=== PATIENT | female | born 1985 ===

== ENCOUNTER 2017-03-08 08:55 | Emergency (ER) | payer OTHER, SELFPAY ==
[2017-03-08 09:15] VITALS: RESP 18
[2017-03-08 09:59] LABS: BASO % 0.1 % (0.0-2.0); HEMOGLOBIN 11.4 g/dL (11.0-16.0); LYMPH # 2.2 K/uL (1.0-4.3); LYMPH % 20.3 % (20.0-40.0); MEAN CORPUSCULAR HEMOGLOBIN 24.7 pg (27.0-31.0); MEAN CORPUSCULAR HGB CONC 32.8 g/dL (33.0-37.0); MONO # 0.8 K/uL (0.0-0.8); MONO % 7.7 % (0.0-10.0); NEUT # 7.8 K/uL (1.8-7.0); NEUT % 71.9 % (50.0-75.0); RBC 4.61 Mil/uL (3.80-5.20); RED CELL DISTRIBUTION WIDTH 16.7 % (11.5-14.5)
[2017-03-08 10:01] LABS: HCG,QUALITATIVE URINE NEGATIVE (NEGATIVE); MEAN CELL VOLUME 75.5 fL (81.0-99.0); WHITE BLOOD COUNT 10.9 K/uL (4.8-10.8)
[2017-03-08 10:05] LABS: INR 1.1; PROTHROMBIN TIME 12.7 SECONDS (9.7-12.2)
[2017-03-08 10:06] LABS: SQUAMOUS EPITHIAL < 1 /hpf (0-5); URINE BILIRUBIN NEGATIVE (NEGATIVE); URINE BLOOD NEGATIVE (NEGATIVE); URINE CLARITY Clear (Clear); URINE COLOR Yellow (YELLOW); URINE GLUCOSE (UA) NORMAL (Normal); URINE LEUKOCYTE ESTERASE NEG Leu/uL (Negative); URINE NITRATE NEGATIVE (NEGATIVE); URINE PROTEIN NEGATIVE (NEGATIVE); URINE UROBILINOGEN NORMAL mg/dL (0.2-1.0)
--- NOTE | 2017-03-08 10:10 | C.PDOC ---
History Of Present Illness 31 y/o female, with history of hypothyroidism, presents to the ER for chest pain , arm numbness which started while she was sleeping. Patient reports that "she also has belching" Patient denies any fever, hx of blood clots,surgery, and recent travel. no sob, no cardiac hx. Time Seen by Provider: 03/08/17 09:29 Chief Complaint (Nursing): Chest Pain History Per: Patient History/Exam Limitations: no limitations Onset/Duration Of Symptoms: Hrs Current Symptoms Are (Timing): Still Present Severity: Moderate Past Medical History Reviewed: Historical Data, Nursing Documentation, Vital Signs Vital Signs: Last Vital Signs Temp 98.5 F 03/08/17 09:14 Pulse 83 03/08/17 09:14 Resp 18 03/08/17 09:14 BP 118/75 03/08/17 09:14 Pulse Ox 100 03/08/17 10:16 - Medical History PMH: Hypothyroidism Surgical History: No Surg Hx - [facility] Procedures EXTRACTION OF POC, LOW CERVICAL, OPEN APPROACH (06/12/15) MONITORING OF POC, CARDIAC RATE, CANCER REGISTRY COORDINATOR APPROACH (06/12/15) Family History: States: No Known Family Hx - Social History Hx Alcohol Use: No Hx Substance Use: No - Immunization History Hx Tetanus Toxoid Vaccination: Yes Hx Influenza Vaccination: No Hx Pneumococcal Vaccination: No Review Of Systems Except As Marked, All Systems Reviewed And Found Negative. Constitutional: Negative for: Fever, Chills Cardiovascular: Positive for: Chest Pain Respiratory: Negative for: Cough, Shortness of Breath Neurological: Positive for: Numbness (arm numbness) Physical Exam - Physical Exam Appears: Non-toxic, No Acute Distress Skin: Normal Color, Warm Head: Atraumatic, Normacephalic Eye(s): bilateral: Normal Inspection, PERRL Nose: Normal Oral Mucosa: Moist Neck: Supple Chest: Symmetrical Cardiovascular: Rhythm Regular Respiratory: Normal Breath Sounds, No Accessory Muscle Use, No Rales, No Rhonchi , No Wheezing Gastrointestinal/Abdominal: Normal Exam, Soft, No Tenderness Extremity: Normal ROM Neurological/Psych: Oriented x3, Normal Speech, Normal Cognition, Normal Motor, Normal Sensation ED Course And Treatment - Laboratory Results Result Diagrams: 03/08/17 09:50 03/08/17 09:50 ECG: Interpreted By Me, Viewed By Me ECG Rhythm: Sinus Rhythm Rate From EC O2 Sat by Pulse Oximetry: 100 (RA) Pulse Ox Interpretation: Normal Medical Decision Making Medical Decision Making: cp r/o pna, pneumo, metabolic, anemia- pt well appearing on phone in nad. perc neg. ekg wnl. no cardiac risk factor. Plan: -- Labs -- Urinalysis --CXR -- EKG PERC negative 1030: pt reasseseD: in nad, on phone, speaking full sentences, perc neg, cxr, ekg wnl no e/o of anmeia, electrolytes wnl. advsie close outpt f/u and return precautions Disposition - Disposition Referrals: Beltran Haile MD [Staff Provider] - [facility] [Outside] [facility] [Outside] Disposition: HOME/ ROUTINE Disposition Time: 10:32 Condition: STABLE Additional Instructions: follow up with your doctor return to er with worsening symptoms or concerns. Forms: [employer] (Citizen Of [place]) - Clinical Impression Clinical Impression: Chest pain - Scribe Statement The provider has reviewed the documentation as recorded by the Careyibjuanpablo Shankar Provider Attestation: All medical record entries made by the Scribe were at my direction and personally dictated by me. I have reviewed the chart and agree that the record accurately reflects my personal performance of the history, physical exam, medical decision making, and the department course for this patient. I have also personally directed, reviewed, and agree with the discharge instructions and disposition.
--- NOTE | 2017-03-08 10:17 | RAD ---
HISTORY: SOB COMPARISON: None available. TECHNIQUE: Chest PA and lateral FINDINGS: LUNGS: No focal consolidation. Bilateral lower lobe nodular densities appear consistent with nipple shadows. Please note that chest x-ray has limited sensitivity for the detection of pulmonary masses. PLEURA: No significant pleural effusion identified. No definite pneumothorax . CARDIOVASCULAR: The cardiomediastinal silhouette appears within normal limits of size. OSSEOUS STRUCTURES: No acute osseous abnormality identified. VISUALIZED UPPER ABDOMEN: Unremarkable. OTHER FINDINGS: None. IMPRESSION: No focal consolidation, significant pleural effusion, or definite pneumothorax identified.
[2017-03-08 10:22] LABS: ALB/GLOB RATIO 1.3 (1.0-2.1); ALBUMIN 4.3 g/dL (3.5-5.0); ALT/SGPT 17 U/L (9-52); AST/SGOT 20 U/L (14-36); BLOOD UREA NITROGEN 11 mg/dL (7-17); CALCIUM 8.7 mg/dl (8.6-10.4); GFR AFRICAN-AMERICAN > 60; GFR NON-AFRICAN AMERICAN > 60
[2017-03-08 10:46] VITALS: BP 95/58; PULSE 75; TEMP 98; O2SAT 99
--- NOTE | 2017-03-09 23:14 | CARD ---
APPROVED REPORT EKG Measurement Heart [id number] <Conclusion> Normal sinus rhythm Normal ECG
== END 2017-03-08 10:46 | disposition home or self-care (01) ==
LOC: C.ER 08:55
DX: R07.9 Chest pain, unspecified (principal)

== ENCOUNTER 2017-11-18 14:16 | Emergency (ER) | payer OTHER ==
[2017-11-18 14:17] VITALS: BMI 29.8
[2017-11-18] MEDS ORDERED: Sodium Chloride 0.9% 1,000 ML IV ONE (15:19)
--- NOTE | 2017-11-18 15:20 | C.PDOC ---
History Of Present Illness 32 y/o female, A1, LMP: 10/06/17, presents to ED for evaluation suprapubic abdominal pain described as cramping gradually worsening over the past 3 days. Patient reports having positive home test yesterday. Notes she had Paragard IUD for 2 years. She reports associated nausea and vomiting. She notes having scant pink discharge when wiping. Denies painful urination, frequency, urination, diarrhea, constipation, fever, chills, or back pain. Time Seen by Provider: 11/18/17 15:13 Chief Complaint (Nursing): Abdominal Pain History Per: Patient History/Exam Limitations: no limitations Onset/Duration Of Symptoms: Days Current Symptoms Are (Timing): Still Present Location Of Pain/Discomfort: Suprapubic Radiation Of Pain To:: None Quality Of Discomfort: Cramping Associated Symptoms: Nausea, Vomiting. denies: Fever, Chills Exacerbating Factors: None Alleviating Factors: None Recent travel outside of the [place]: No Additional History Per: Patient Last Menstral Period: 10/06/17 : 4 Para: 2 Past Medical History Reviewed: Historical Data, Nursing Documentation, Vital Signs Vital Signs: Last Vital Signs Temp 99 F 11/18/17 14:37 Pulse 71 11/18/17 14:37 Resp 19 11/18/17 14:37 BP 115/66 11/18/17 14:37 Pulse Ox 100 11/18/17 14:37 - Medical History PMH: Hypothyroidism - [facility] Procedures EXTRACTION OF POC, LOW CERVICAL, OPEN APPROACH (06/12/15) MONITORING OF POC, CARDIAC RATE, REMOTE ADVISOR APPROACH (06/12/15) Family History: States: Unknown Family Hx - Social History Hx Alcohol Use: No Hx Substance Use: No - Immunization History Hx Tetanus Toxoid Vaccination: No Hx Influenza Vaccination: No Hx Pneumococcal Vaccination: No Review Of Systems Except As Marked, All Systems Reviewed And Found Negative. Constitutional: Negative for: Fever, Chills Gastrointestinal: Positive for: Nausea, Vomiting, Abdominal Pain. Negative for: Diarrhea, Constipation, Hematemesis Genitourinary: Negative for: Dysuria, Frequency, Hematuria Musculoskeletal: Negative for: Back Pain Physical Exam - Physical Exam Appears: Non-toxic, No Acute Distress Skin: Normal Color, Warm, Dry Head: Atraumatic, Normacephalic Eye(s): bilateral: Normal Inspection Oral Mucosa: Moist Neck: Normal ROM, Supple Chest: Symmetrical, No Tenderness Cardiovascular: Rhythm Regular, No Murmur Respiratory: Normal Breath Sounds, No Rales, No Rhonchi, No Wheezing Gastrointestinal/Abdominal: Soft, Tenderness (suprapubic), No Guarding, No Rebound Back: No CVA Tenderness Extremity: Normal ROM Neurological/Psych: Oriented x3, Normal Speech ED Course And Treatment - Laboratory Results Result Diagrams: 11/18/17 15:27 11/18/17 15:27 O2 Sat by Pulse Oximetry: 100 (RA) Pulse Ox Interpretation: Normal - CT Scan/US Preg 1st trimester US Other Rad Studies (CT/US): Read By Radiologist, Radiology Report Reviewed CT/US Interpretation: Accession No. : [id number]. Patient Name / ID : AKIRA BORREGO / [id number]. Exam Date : 11/18/2017 16:57:19 ( Approved ). Study Comment : Sex / Age : F / 32Y. Creator : Rachle Iyer MD. Dictator : Rachel Iyer MD. Wrapper Layer : Turner In : Rachel Iyer MD. Approver2 : Report Date : 11/18/2017 17:38:48. My Comment : . Date of service: 11/18/17. 1st trimester ultrasound. Indication: preg, pain, spotting has IUD r.o ectopic. Comparison: None. Technique: Real-time transabdominal pelvic ultrasound was performed. In addition a transvaginal pelvic ultrasound was necessary to better depict pelvic anatomy. Findings: Uterus measures approximately 10.6 x 6.3 x 6.6 cm. Anteverted. Endometrial thickness measures approximately 2.8 cm. Small cystic focus within the endometrium appears compatible with gestational sac, too small for gestational age calculation. No evidence of yolk sac or pole at this time. An IUD is identified within the cervix/lower uterine segment. Cervix length measures approximately 3.1 cm. The right ovary measures 3.6 x 2.5 x 3.4 cm. The left ovary measures 2.8 x 1.6 x 2.6. Blood flow was demonstrated to both ovaries. Impression: Thickened endometrium measuring approximately 2.8 cm. Small cystic focus within the endometrium appears compatible with gestational sac, too small for gestational age calculation. No evidence of yolk sac or pole at this time. Recommend clinical correlation including quantitative beta HCG and follow-up ultrasound as indicated. An IUD is identified within the cervix/lower uterine segment. Recommend HANDYMAN con sultation. Medical Decision Making Medical Decision Making: Impression: 32 year old female, A1, with gradually worsening lower abdominal pain. Plan: * Blood work * Urinalysis * OB transvaginal US * IV fluids Progress: POc was + . Ordered labs and US. Labs reviewed normal H/H and BHCG is ~1400. US shows gestational sac and thickened endometrium, no adnexal abnormality. 1752 Discussed case with OB hospitalist Dr Esteves and advised the patient r eturn in 48 hours BHCG should be about 2100 and repeat US. Patient remained afebrile with stable vital signs and in no distress. Discussed results with patient, and copy of lab and US report was provided. Advise patient to return for repeat blood and US in 48 hours and expressed understanding. Christiane ent feels comfortable going home and will be discharged. Patient given follow up instructions. Instructed to return to ER if symptoms worsen or new symptoms arise. Disposition Counseled Patient/Family Regarding: Diagnosis, Need For Followup - Disposition [facility] Disposition: HOME/ ROUTINE Disposition Time: 17:56 Condition: STABLE Additional Instructions: Return in 48 hours for repeat BHCG and US. Take Tylenol for any pain Regreso en 48 horas para repetir HCG y US. Yessi Tylenol para cualquier dolor. Instructions: Threatened Miscarriage (DC) Forms: [employer] (Bermudian) Print Language: SAMI - POA Present On Arrival: None - Clinical Impression Clinical Impression: Threatened - PA / FILE CLERK DATA ENTRY / Resident Statement MD/DO has reviewed & agrees with the documentation as recorded. - Scribe Statement The provider has reviewed the documentation as recorded by the Scribe KP All medical record entries made by the Scribe were at my direction and pe rsonally dictated by me. I have reviewed the chart and agree that the record accurately reflects my personal performance of the history, physical exam, medical decision making, and the department course for this patient. I have also personally directed, reviewed, and agree with the discharge instructions and disposition.
[2017-11-18 15:36] LABS: BASO % 0.3 % (0.0-2.0); HEMOGLOBIN 10.2 g/dL (11.0-16.0); LYMPH # 1.9 K/uL (1.0-4.3); LYMPH % 26.9 % (20.0-40.0); MEAN CELL VOLUME 71.3 fL (81.0-99.0); MEAN CORPUSCULAR HGB CONC 32.3 g/dL (33.0-37.0); MEAN PLATELET VOLUME 8.8 fL (7.2-11.7); MONO # 0.6 K/uL (0.0-0.8); MONO % 8.6 % (0.0-10.0); NEUT # 4.5 K/uL (1.8-7.0); NEUT % 64.2 % (50.0-75.0); RBC 4.43 Mil/uL (3.80-5.20); RED CELL DISTRIBUTION WIDTH 17.6 % (11.5-14.5)
[2017-11-18 15:39] LABS: HCG,QUALITATIVE URINE POSITIVE (NEGATIVE)
[2017-11-18 15:44] LABS: SQUAMOUS EPITHIAL < 1 /hpf (0-5); URINE BACTERIA RARE (<OCC); URINE BILIRUBIN NEGATIVE (NEGATIVE); URINE BLOOD NEGATIVE (NEGATIVE); URINE CLARITY Clear (Clear); URINE COLOR Straw (YELLOW); URINE GLUCOSE (UA) NORMAL (Normal); URINE LEUKOCYTE ESTERASE NEG Leu/uL (Negative); URINE PROTEIN NEGATIVE (NEGATIVE); URINE UROBILINOGEN NORMAL mg/dL (0.2-1.0)
[2017-11-18 15:52] LABS: ALB/GLOB RATIO 1.6 (1.0-2.1); ALBUMIN 4.4 g/dL (3.5-5.0); ALT/SGPT 30 U/L (9-52); AST/SGOT 18 U/L (14-36); BLOOD UREA NITROGEN 10 mg/dL (7-17); CALCIUM 8.9 mg/dl (8.6-10.4); GFR NON-AFRICAN AMERICAN > 60
--- NOTE | 2017-11-18 17:40 | US ---
Date of service: 11/18/17 1st trimester ultrasound Indication: preg, pain, spotting has IUD r.o ectopic Comparison: None. Technique: Real-time transabdominal pelvic ultrasound was performed. In addition a transvaginal pelvic ultrasound was necessary to better depict pelvic anatomy. Findings: Uterus measures approximately 10.6 x 6.3 x 6.6 cm. Anteverted. Endometrial thickness measures approximately 2.8 cm. Small cystic focus within the endometrium appears compatible with gestational sac, too small for gestational age calculation. No evidence of yolk sac or pole at this time. An IUD is identified within the cervix/lower uterine segment. Cervix length measures approximately 3.1 cm. The right ovary measures 3.6 x 2.5 x 3.4 cm. The left ovary measures 2.8 x 1.6 x 2.6. Blood flow was demonstrated to both ovaries. Impression: Thickened endometrium measuring approximately 2.8 cm. Small cystic focus within the endometrium appears compatible with gestational sac, too small for gestational age calculation. No evidence of yolk sac or pole at this time. Recommend clinical correlation including quantitative beta HCG and follow-up ultrasound as indicated. An IUD is identified within the cervix/lower uterine segment. Recommend LOAN OFFICER consultation.
[2017-11-18 18:10] VITALS: BP 113/68; PULSE 79; RESP 18; TEMP 98.8
[2017-11-19 15:39] VITALS: O2SAT 100
== END 2017-11-18 18:10 | disposition home or self-care (01) ==
LOC: C.ER 14:16
DX: O20.0 Threatened abortion (principal); Z3A.00 Weeks of gestation of pregnancy not specified
CPT/HCPCS: 76805; 76817; 80053; 81001; 84702; 84703; 85025; 86850; 86900; 96360; 99284; J7030

== ENCOUNTER 2017-11-20 15:28 | Emergency (ER) | payer OTHER ==
[2017-11-20 15:28] VITALS: BMI 29.8
[2017-11-20 15:51] VITALS: O2SAT 100
--- NOTE | 2017-11-20 18:17 | C.PDOC ---
History Of Present Illness 32-year-old female, presents to the emergency department for repeat beta. Patient was seen in ED two days ago for vaginal bleeding. She had a beta and ultrasound done, and was requested to return. Patient denies any vaginal bleeding or pain at this time. No other complaints. Time Seen by Provider: 11/20/17 16:17 Chief Complaint (Nursing): Medical Clearance History Per: Patient History/Exam Limitations: no limitations Past Medical History Reviewed: Historical Data, Nursing Documentation, Vital Signs Vital Signs: Last Vital Signs Temp 97.9 F 11/20/17 15:47 Pulse 83 11/20/17 15:47 Resp 18 11/20/17 15:47 BP 114/72 11/20/17 15:47 Pulse Ox 100 11/20/17 15:47 - Medical History PMH: Hypothyroidism Denies: Chronic Kidney Disease - [facility] Procedures EXTRACTION OF POC, LOW CERVICAL, OPEN APPROACH (06/12/15) MONITORING OF POC, CARDIAC RATE, RAILROAD POLICE OFFICER APPROACH (06/12/15) Family History: States: No Known Family Hx - Social History Hx Alcohol Use: No Hx Substance Use: No - Immunization History Hx Tetanus Toxoid Vaccination: Yes Hx Influenza Vaccination: No Hx Pneumococcal Vaccination: No Review Of Systems Constitutional: Negative for: Fever Gastrointestinal: Negative for: Vomiting, Abdominal Pain Genitourinary: Negative for: Vaginal Bleeding Physical Exam - Physical Exam Appears: Non-toxic, No Acute Distress Skin: Normal Color, Warm, Dry, No Rash Head: Atraumatic Eye(s): bilateral: Normal Inspection Nose: Normal Oral Mucosa: Moist Lips: Normal Appearing Neck: Normal ROM Chest: Symmetrical Cardiovascular: Rhythm Regular, No Murmur Respiratory: Normal Breath Sounds, No Accessory Muscle Use Gastrointestinal/Abdominal: Soft, No Tenderness Extremity: Normal ROM, No Deformity Neurological/Psych: Oriented x3, Normal Speech ED Course And Treatment O2 Sat by Pulse Oximetry: 100 Pulse Ox Interpretation: Normal (RA) Medical Decision Making Medical Decision Making: Plan: * Labs * Ultrasound Disposition - Disposition Disposition Time: 19:02 Condition: STABLE Forms: [facility] (Slovak) - Clinical Impression Clinical Impression: Threatened - Scribe Statement The provider has reviewed the documentation as recorded by the Scribe (Gilmar Mcfadden) All medical record entries made by the Scribe were at my direction and personally dictated by me. I have reviewed the chart and agree that the record accurately reflects my personal performance of the history, physical exam, medical decision making, and the department course for this patient. I have also personally directed, reviewed, and agree with the discharge instructions and disposition. Physician Patient Turnover Patient Signed Over To: Baltazar Jeffery Handoff Comments: pending US report and dispo
[2017-11-20 19:55] VITALS: BP 120/73; PULSE 75; RESP 20; TEMP 98.3
--- NOTE | 2017-11-21 14:33 | US ---
Date of service: 11/20/2017 PROCEDURE: OB Pelvic Ultrasound HISTORY: Follow-up missed LMP: 10/06/2017 COMPARISON: Comparison made with prior study 11/18/2017 FINDINGS: UTERUS: In situ IUD gestational sac: MSD = 0.52 cm = out of range Yolk sac: Not visualized pole: Not visualized Heart rate: None detected. age (Ultrasound estimated): Out of range Brianna-gestational hemorrhage: None. Date of delivery (Ultrasound estimated) : NA Uterus measures 12.4 x 6.4 x 5.5 cm. Normal in size and appearance. CERVIX: Measures 3.29 cm. Long and closed. No cervical abnormality seen. RIGHT OVARY: Measures 2.8 x 2.7 x 3.3 cm. No mass lesion. Normal flow. LEFT OVARY: Measures 2.3 cm. No solid mass. Normal flow. FREE FLUID: None. OTHER FINDINGS: None. IMPRESSION: There is a small fluid collection within the endometrial canal that could represent a gestational sac however too small age. No evidence of pole for yolk sac.. Findings could represent early gestational sac versus demise however the possibility of an ectopic cannot be excluded. Continued follow-up serial serum beta HCG and serial pelvic ultrasound recommended. In situ IUD. This report was placed in PA review folder for follow up.
== END 2017-11-20 20:31 | disposition home or self-care (01) ==
LOC: C.ER 15:28
DX: O20.0 Threatened abortion (principal); Z3A.00 Weeks of gestation of pregnancy not specified